=== PATIENT | male | born 2000 | race Caucasian/White ===

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

== ENCOUNTER 2023-12-17 15:52 | Emergency (ER) | payer OTHER, SELFPAY ==
[2023-12-17 16:02] VITALS: BP 106/50; PULSE 111; RESP 18; TEMP 36.7; O2SAT 100
[2023-12-17 17:40] LABS: Hematocrit 48.8 % (42.0-52.0); Hemoglobin 16.3 g/dL (14.0-18.0); Mean Corpuscular HGB Conc 33.4 g/dl (32-36); Mean Corpuscular Hemoglobin 30.8 pg (26-34); Mean Corpuscular Volume 92.1 fl (80-100); Mean Platelet Volume 11.1 fl (7.4-10.4); Platelet Count Result 177 k/mm3 (150-375); Red Cell Distribution Width 12.8 % (11.5-14.5); White Blood Count 12.1 K/mm3 (4.5-10.0)
[2023-12-17 17:55] LABS: Band Neutrophils Percent 9 % (0-6); Lymphocytes Absolute Manual 0.84 K/mm3 (1.1-4.5); Monocytes Percent Manual 5 % (3-9); Neutrophils Absolute Manual 10.64 K/mm3 (1.3-6.7); Neutrophils Percent Manual 79 % (46-73); Platelet Estimate Adequate (Adequate); Total Cells Counted 100
[2023-12-17 17:56] LABS: Schistocytes None Seen (NORMAL)
[2023-12-17 18:08] VITALS: BP 109/74; PULSE 100; RESP 12; O2SAT 98
--- NOTE | 2023-12-17 18:08 | PC.NURSE ---
Pt unable to void for u/a, declines straight cath at this time. Urinal given, call light in reach.
--- NOTE | 2023-12-17 18:25 | ED.GENADULT ---
[facility] - General Adult General Chief complaint: Nausea/Vomiting/Diarrhea Stated complaint: n/v/d x 12 hours Time Seen by Provider: 12/17/23 18:01 Source: patient Mode of arrival: ambulatory Limitations: no limitations History of Present Illness HPI narrative: This is a 23-year-old male who presents to the ED with chief complaint of N/V/D beginning around midnight last night. Patient reports he was feeling well the previous day but had a sudden onset of nausea and vomiting when trying to go to sleep. He reports around 9:00 a.m. he ate some on washed but struggles with when stressing and the symptoms seem to come on a couple hours after that. Reports having diarrheal episodes every half an hour. Denies abdominal pain, fevers, chills, GI bleeding, urinary symptoms, Related Data Allergies Allergy/AdvReac Type Severity Reaction Status Date / Time peanut Allergy Intermediate SWELLING Verified 12/17/23 17:32 OF TONGUE AND THROAT Review of Systems Review of Systems: All systems as dictated in [facility] Past Medical History Medical History (Updated 12/18/23 @ 00:00 by Background Daemon) No pertinent past medical history Social History Social History Gender identity (if verbalized by the patient): Male Exam Narrative: GENERAL: Well-appearing, well-nourished, and in no acute distress. HEAD: Normocephalic, atraumatic. EYES: PERRLA and EOMI. ENT: Nares clear, no rhinorrhea or epistaxis. Mucous membranes moist. Oropharynx without tonsillar hypertrophy exudate or other lesions. NECK: Supple. No adenopathy or masses. CHEST: No respiratory distress. Clear to auscultation. No wheezes rales or rhonchi HEART: Regular rate and rhythm. No murmur heard. Normal peripheral pulses. ABDOMEN: Soft, nontender, nondistended, normal active bowel sounds. MSK: Normal range of motion. No edema. SKIN: Warm, dry, no rash. NEURO: Alert and oriented x3. No focal deficits. PSYCH: Normal mood and affect. Course Vital Signs Vital signs: Vital Signs Temperature 98.1 F 12/17/23 16:02 Pulse Rate 111 H 12/17/23 16:02 Respiratory Rate 18 12/17/23 16:02 Blood Pressure 106/50 L 12/17/23 16:02 Pulse Oximetry 100 12/17/23 16:02 Temperature 98.1 F 12/17/23 16:02 Pulse Rate 93 12/17/23 20:58 Respiratory Rate 16 12/17/23 20:58 Blood Pressure 117/55 L 12/17/23 20:58 Pulse Oximetry 98 12/17/23 20:58 Medical Decision Making MDM Narrative Medical decision making narrative: This is a 23-year-old male who presents to the ED with chief complaint of N/V/D beginning around midnight last night after eating some unwashed vegetables. Vitals show initial slight tachycardia but otherwise normal vitals. Exam is overall benign. No evidence of acute abdomen. Lab work shows mildly elevated white count of 12.1, consistent with acute phase reaction. CMP shows BUN of 22, consistent with slight dehydration. Urinalysis confirms dehydration. Symptoms overall are consistent with food-borne illness. He improved with fluids and Zofran here. Pt will be discharged in stable condition. Return precautions given and supportive measures discussed. Pt is understanding and agreeable with plan for discharge and follow-up with PCP. Vital Signs Vital Signs: Vital Signs Temperature 98.1 F 12/17/23 16:02 Pulse Rate 111 H 12/17/23 16:02 Respiratory Rate 18 12/17/23 16:02 Blood Pressure 106/50 L 12/17/23 16:02 Pulse Oximetry 100 12/17/23 16:02 Temperature 98.1 F 12/17/23 16:02 Pulse Rate 93 12/17/23 20:58 Respiratory Rate 16 12/17/23 20:58 Blood Pressure 117/55 L 12/17/23 20:58 Pulse Oximetry 98 12/17/23 20:58 Lab Data 12/17/23 17:33 12/17/23 18:24 Labs: Lab Results 12/17/23 12/17/23 Range/Units 17:33 18:24 WBC 12.1 H (4.5-10.0) K/mm3 RBC 5.30 (4.6-6.20) M/mm3 Hgb 16.3 (14.0-18.0) g/dL Hct 48.8 (42.0-52.0) % MCV 92.1
[2023-12-17] MEDS: SODIUM CHLORIDE 0.9% IV 1,000 ML 999 ML IV CONT (18:38)
[2023-12-17] MEDS: ONDANSETRON INJ 4 MG/2 ML VIAL IV PUSH (18:38)
[2023-12-17 18:49] LABS: Appearance Urine Cloudy (Clear); Bacteria Urine None Seen /hpf; Bilirubin Urine Negative (Negative); Blood Urine Negative (Negative); Color Urine Dark Yellow (Yellow); Glucose Urine UA Negative (Negative); Ketones Urine Trace mg/dL (Negative); Leukocyte Esterase Ur Negative LEU/UL (Negative); Need Manual Microscopic Reviewed; Nitrate Urine Negative (Negative); Protein Urine 1+ mg/dL (Negative); RBC Urine 0-2 /hpf (0-2); Squamous Epithelial Cell Urine Moderate /hpf (Few); pH Urine 5.5 (5.0-9.0)
[2023-12-17 18:50] LABS: Add Urine Microscopic? YES; Specific Grav Ur 1.039 (1.001-1.035)
[2023-12-17 19:22] LABS: Alanine Aminotransferase 22 U/L (6-50); Albumin Level 4.8 g/dL (3.5-5.1); Alkaline Phosphatase 84 U/L (38-126); Anion Gap 12 mmol/L (8-16); Aspartate Amino Transferase 28 U/L (17-59); Bilirubin,Total 0.9 mg/dL (0.2-1.3); Blood Urea Nitrogen 22 mg/dL (9-20); Calcium 9.6 mg/dL (8.4-10.2); Carbon Dioxide 25 mmol/L (22-30); Chloride 103 mmol/L (98-107); Estimated CRCL calculation 125 ml/min; Estimated Glomerular Filt Rate > 60; Glucose 135 mg/dL (65-110); Lipase 24 U/L (23-300); Potassium 3.9 mmol/L (3.4-5.0); Sodium 140 mmol/L (137-145)
[2023-12-17 20:58] VITALS: BP 117/55; PULSE 93; RESP 16; O2SAT 98
== END 2023-12-17 21:00 | disposition home or self-care (01) ==
PROVIDERS: Emergency Medicine; Emergency Provider Physician Assistant; PCP Family Medicine Adolescent Medicine
DX: K52.9 Noninfective gastroenteritis and colitis, unspecified (principal); R82.998 Other abnormal findings in urine
CPT/HCPCS: 36415; 80053; 81001; 83690; 85025; 87086; 96361; 96374; 99284; J2405; J7030